=== PATIENT | male | born 1975 ===

== ENCOUNTER 2020-03-06 10:54 | Outpatient (CLI) | payer OTHER ==
[2020-03-07] MEDS ORDERED: FLONASE16 GM NASAL (13:38)
[2020-03-07] MEDS ORDERED: NEILMED SINUS1 EACH NASAL (13:39)
== END 2020-03-06 14:20 | disposition home or self-care (01) ==
LOC: OFIC 805 10:54
DX: J30.89 Other allergic rhinitis (principal); R09.81 Nasal congestion

== ENCOUNTER → 2020-07-25 14:05 | Outpatient (CLI) | payer OTHER ==
[~2020-07-25 14:05] MED LIST: FLONASE16 GM NASAL; NEILMED SINUS1 EACH NASAL
== END | disposition home or self-care (01) ==
LOC: OFIC 805 13:15
PROVIDERS: ATTEND Otolaryngology
DX: H61.93 Disorder of external ear, unspecified, bilateral (principal); J30.89 Other allergic rhinitis; K14.8 Other diseases of tongue

== ENCOUNTER → 2020-09-13 | Outpatient (CLI) | payer OTHER | END | disposition home or self-care (01) | LOC: OFIC 805 14:45 | PROVIDERS: ATTEND Otolaryngology Otology & Neurotology | DX: R06.83 Snoring (principal); G47.39 Other sleep apnea; K14.8 Other diseases of tongue ==